=== PATIENT | female | born 1985 | race Hispanic/Latino ===

== ENCOUNTER 2017-04-28 10:30 | Outpatient (CLI) | payer OTHER ==
--- NOTE | 2017-04-28 15:01 | ULT ---
OBSTETRICAL ULTRASOUND: INDICATION: Size and dates. FINDINGS: There is a single live intrauterine gestation in breech presentation. The placenta is posterior in location. There is suspected small venous matthews seen along the superior and inferior margins of the placenta. Cardiac activity is noted at 137 b.p.m. The amniotic fluid level appears lower limits of normal. Cervical length is 5.4 cm. The head, cerebellum, cisternal magna, and lateral ventricles appear within normal limits. Vi sualized heart, stomach, and kidneys appear within normal limits. The visualized bladder is unremar kable. The lips and nose, cord insertion, spine, and 3-vessel cord is not well seen. The estimated weight is 216 gm. The average gestational age on ultrasound based on biometrics is 17 weeks and 5 days with estimated due date of 10/01/17. IMPRESSION: 1. Single live intrauterine gestation. 2. Size and dates as above. 3. Amniotic fluid index appeared lower limits of normal. Recommend a followup examination in [address] [place] [address] for reevaluation. The anatomy was incompletely evaluated. The cord insertion, spine, lips and nose, 3-vessel cord were not well seen. This may be reevaluated on the followup exam. POS: [facility]
== END 2017-04-28 10:31 | disposition home or self-care (01) ==
LOC: ULT 10:30
PROVIDERS: ATTEND Family Medicine
DX: Z34.02 Encounter for supervision of normal first pregnancy, second trimester (principal); Z3A.17 17 weeks gestation of pregnancy
CPT/HCPCS: 76805

== ENCOUNTER 2017-05-13 09:52 | Outpatient (CLI) | payer OTHER ==
--- NOTE | 2017-05-13 14:10 | ULT ---
ULTRASOUND OB COMPLETE STANDARD: HISTORY: Followup amniotic fluid index. COMPARISON: OB ultrasound 04/28/17. TECHNIQUE: Real-time, liang scale, and color evaluation of the gravid uterus performed transabdominal approach. Single viable intrauterine with average ultrasound age 19 weeks 4 days, estimated date of delivery 10/03/17. This is concordant with the clinical age. Estimated weight is 11 ounces, 49th percentile. The cervix measures 5.3 cm in length. The visualized spine, sacrum, bladder, cord insertion, cerebe llum, 3-vessel cord, and spine are all normal. Biparietal diameter 19 weeks 2 days, 4.41 cm. Head circumference 19 weeks 4 days, 16.94 cm. Abdominal circumference 20 weeks 1 day, 14.92 cm. Femur length 19 weeks 5 days, 3.14 cm. Amniotic fluid index is 11.3 cm. The heart rate is documented at 150 b.p.m. IMPRESSION: Normal anatomy scan with average ultrasound age 19 weeks 4 days, estimated date of delivery 10/03/17. The amniotic fluid index now measures 11.3 cm. POS: [facility]
== END 2017-05-13 09:53 | disposition home or self-care (01) ==
LOC: ULT 09:52
PROVIDERS: ATTEND Family Medicine
DX: Z34.92 Encounter for supervision of normal pregnancy, unspecified, second trimester (principal); Z3A.19 19 weeks gestation of pregnancy
CPT/HCPCS: 76805

== ENCOUNTER 2017-09-04 22:13 | Inpatient (IN) | payer MEDICAID, OTHER ==
[~2017-09-04 22:13] MED LIST: Bupivacaine HCl 0.5%/Epinephrine 1:200,000/PF 30 ml Vial ONE
[2017-09-04 22:48] VITALS: BMI 26.6
[2017-09-05] MEDS ORDERED: Ondansetron HCl/PF 4 MG/2 ML Vial IVP PRN ×2 (00:36→01:50)
[2017-09-05] MEDS ORDERED: Lidocaine 1% (PF) 30 ML VIAL SC PRN (00:36)
[2017-09-05] MEDS ORDERED: Ibuprofen 800 MG TAB PO PRN (00:36)
[2017-09-05] MEDS ORDERED: LR / Pitocin 40 units/1000 ml 1,000 ML IV PRN (00:36)
[2017-09-05] MEDS ORDERED: Lactated Ringer's 1,000 ML IV SCH ×2 (00:45)
[2017-09-05] MEDS ORDERED: Bupivacaine 0.5% 20 ML, Fentanyl 400 MCG in Sodium Chloride 0.9% 72 ML EPIDURAL SCH (00:45)
[2017-09-05 00:58] LABS: Hemoglobin 12.5 g/dL (12.0-16.0); Mean Corpuscular HGB CONC 32.3 g/dL (32.0-36.0); Mean Corpuscular Hemoglobin 25.7 pg (27.0-31.0); Mean Corpuscular Volume 79.6 fl (81.0-99.0); Mean Platelet Volume 11.4 fL (7.4-10.4); Platelet Count 223 thou/uL (130-400); RBC Distribution Width 14.2 % (11.5-14.5); Red Blood Cell (RBC) Count 4.85 mill/uL (4.20-5.40); White Blood Cell (WBC) Count 12.8 thou/uL (4.8-10.8)
[2017-09-05 01:27] LABS: HBSAg Index 0.13 S/CO (0-0.99); Hep B Surf Ag Non-Reactive S/CO (NonReactive)
[2017-09-05 01:41] LABS: Syphilis Antibody Nonreactive (Nonreactive); Syphilis Antibody Index 0.04 S/CO (<1.00 Non-Reactive)
[2017-09-05] MEDS ORDERED: Promethazine HCl 25 MG/ML VIAL IM PRN (01:50)
[2017-09-05] MEDS ORDERED: Lactated Ringer's 500 ML IV PRN (01:50)
[2017-09-05] MEDS ORDERED: Naloxone HCl 0.4 mg/ml Vial IVP PRN ×2 (01:50)
[2017-09-05] MEDS ORDERED: ePHEDrine/0.9% NaCl/PF SYRINGE 50 mg/10 ml SLOW IVP PRN (01:50)
[2017-09-05] MEDS ORDERED: Acetaminophen 325 MG TAB PO PRN (01:50)
[2017-09-05] MEDS ORDERED: diphenhydrAMINE 50 MG/ML VIAL IVP PRN (01:50)
[2017-09-05] MEDS ORDERED: Eucerin (Mineral Oil/Petrolatum,White) 30 gm Jar TOP PRN (01:50)
[2017-09-05] MEDS ORDERED: Communication Order-Pharmacy FS SCH (02:00)
[2017-09-05] MEDS ORDERED: Fentanyl 4mcg/Marcaine 0.1% Cassette 100 ML EPIDURAL SCH (02:00)
[2017-09-05] MEDS: Dextrose 5%-Lactated Ringers 1,000 ML IV SCH ×2 (03:50→17:57)
[2017-09-05] MEDS ORDERED: LR / Pitocin 40 units/1000 ml 1,000 ML IV SCH (06:43)
[2017-09-05] MEDS ORDERED: Adacel (T-DAP) 0.5 ML VIAL IM ONE (06:43)
[2017-09-05] MEDS ORDERED: Bisacodyl 10 MG SUPP PR PRN (06:43)
[2017-09-05] MEDS ORDERED: Milk Of Magnesia 30 ML UDCUP PO PRN (06:43)
[2017-09-05] MEDS ORDERED: Methylergonovine 0.2 MG/ML VIAL IM PRN (06:43)
[2017-09-05] MEDS ORDERED: Lanolin Ointment 7 GM TUBE TOP PRN (06:43)
--- NOTE | 2017-09-05 09:07 | DN ---
DATE OF SURGERY: 09/05/2017 at 5:00 a.m. PREOPERATIVE DIAGNOSES: 1. A 36-week intrauterine . 2. Active labor. POSTOPERATIVE DIAGNOSES: 1. A 36-week intrauterine . 2. Active labor. PROCEDURE: Spontaneous vaginal delivery. ANESTHESIA: Epidural. PROCEDURE IN DETAIL: This 32-year-old Latin-[place] female at 36 weeks 2 days, G3, P2 presented in active labor. He became complete. Dr. Gonzáles was present for the delivery. Had a normal vaginal d elivery without complication. I then delivered the placenta with 3-vessel cord. Cord blood was jing ected. No lacerations were present. Delivered the placenta, 3-vessel intact. This was sent to path ology. No lacerations present. Estimated blood loss was 350 mL. Mother and baby did well.
[2017-09-05] MEDS: Ferrous Sulfate 325 MG TAB PO SCH ×2 (09:17→17:57)
[2017-09-05] MEDS: HYDROcodone/Acetaminophen 5/325 mg Tablet PO PRN (09:17)
[2017-09-05] MEDS: Docusate Calcium (SURFAK) 240 MG CAP PO SCH ×2 (09:17→21:04)
[2017-09-05] MEDS: Prenatal Vitamin 1 TAB PO SCH (09:17)
[2017-09-06] MEDS: Dextrose 5%-Lactated Ringers 1,000 ML IV SCH ×2 (00:42→09:08)
[2017-09-06] MEDS: HYDROcodone/Acetaminophen 5/325 mg Tablet PO PRN (02:25)
[2017-09-06 06:05] LABS: Hemoglobin 10.3 g/dL (12.0-16.0); Mean Corpuscular HGB CONC 32.5 g/dL (32.0-36.0); Mean Corpuscular Volume 80.1 fl (81.0-99.0); Mean Platelet Volume 10.7 fL (7.4-10.4); Platelet Count 206 thou/uL (130-400); RBC Distribution Width 14.3 % (11.5-14.5); Red Blood Cell (RBC) Count 3.96 mill/uL (4.20-5.40); White Blood Cell (WBC) Count 13.2 thou/uL (4.8-10.8)
[2017-09-06 08:56] VITALS: BP 98/59; TEMP 98.1
[2017-09-06] MEDS: Docusate Calcium (SURFAK) 240 MG CAP PO SCH (09:07)
[2017-09-06] MEDS: Prenatal Vitamin 1 TAB PO SCH (09:07)
[2017-09-06] MEDS: Ferrous Sulfate 325 MG TAB PO SCH (09:07)
== END 2017-09-06 14:45 | disposition home or self-care (01) | DRG 775 ==
LOC: L&D/OP 22:13 → L&D 09-05 00:10 → 3SW 09-05 06:48
PROVIDERS: ADMIT Obstetrics & Gynecology; ATTEND Family Medicine
PROC: 10E0XZZ Delivery of Products of Conception, External Approach (ICD-10-PCS; principal; 2017-09-05)
DX: O60.14X0 Preterm labor third trimester with preterm delivery third trimester, not applicable or unspecified (principal); Z37.0 Single live birth; Z3A.36 36 weeks gestation of pregnancy
CPT/HCPCS: 36415; 51702; 80053; 82239; 83036; 85027; 86780; 87340; 88307; 99285; J0670; J2001; J3010; J3490; J7050